=== PATIENT | male | born 1995 | race Caucasian/White ===

== ENCOUNTER 2017-12-03 10:17 | Emergency (ER) | payer SELFPAY ==
[~2017-12-03 10:17] MED LIST: DICY-42 PO
[2017-12-03 11:59] LABS: PLATELET COUNT, AUTOMATED 265 K/uL (150-450)
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
[2017-12-03 12:31] VITALS: BP 127/76
== END 2017-12-03 12:38 | disposition home or self-care (01) ==
LOC: ER 10:51
DX: F10.920 Alcohol use, unspecified with intoxication, uncomplicated (principal); T76.21XA Adult sexual abuse, suspected, initial encounter; Y92.032 Bedroom in apartment as the place of occurrence of the external cause; Y99.8 Other external cause status
CPT/HCPCS: 36415; 80305; 80357; 80375; 81001; 82040; 82247; 82310; 82374; 82435; 82565; 82947; 84075; 84132; 84155; 84295; 84450; 84460; 84520; 85025; 86308; 87088; 99282